=== PATIENT | male | born 1950 | race African-American/Black ===

== ENCOUNTER 2024-12-08 08:14 | Outpatient (CLI) | payer MEDICARE | END 2024-12-08 08:15 | disposition home or self-care (01) | LOC: CSHSLEEP 08:14 | PROVIDERS: ATTEND Internal Medicine | DX: G47.33 Obstructive sleep apnea (adult) (pediatric) (principal); E66.9 Obesity, unspecified; Z68.37 Body mass index [BMI] 37.0-37.9, adult | CPT/HCPCS: 95810 ==

== ENCOUNTER 2025-02-07 09:37 | Outpatient (CLI) | payer MEDICARE | END 2025-02-07 09:38 | disposition home or self-care (01) | LOC: CSHSLEEP 09:37 | PROVIDERS: ATTEND Internal Medicine | DX: G47.33 Obstructive sleep apnea (adult) (pediatric) (principal); E66.9 Obesity, unspecified; Z68.37 Body mass index [BMI] 37.0-37.9, adult; R09.02 Hypoxemia | CPT/HCPCS: 95811 ==